=== PATIENT | male | born 1980 | race Caucasian/White ===

== ENCOUNTER → 2023-01-18 | Outpatient (CLI) | payer OTHER ==
[~2023-01-18] MED LIST: ISOVUE-370 76% 100ML VIAL As Ordered ONE
== END ==
LOC: M RAD 08:10
PROVIDERS: ATTEND Physician Assistant
DX: R91.1 Solitary pulmonary nodule (principal)

== ENCOUNTER → 2023-09-17 | Outpatient (CLI) | payer OTHER ==
[2023-09-17 14:38] LABS: BASO # 0.1 10^3/uL (0.0-0.2); BASO % 0.9 % (0.0-1.0); EOS # 0.5 10^3/uL (0.0-0.5); EOS % 6.4 % (0.0-3.0); HEMATOCRIT 44.6 % (42.0-52.0); HEMOGLOBIN 15.3 g/dl (13.5-17.5); LYMPH # 3.1 10^3/uL (1.5-5.0); MEAN CORPUSCULAR HEMOGLOBIN 30.8 pg (27.0-33.0); MEAN CORPUSCULAR HGB CONC 34.3 g/dl (32.0-36.5); MEAN CORPUSCULAR VOLUME 89.7 fl (80.0-96.0); MONO # 0.8 10^3/uL (0.0-0.8); MONO % 10.1 % (2.0-8.0); NEUTROPHILS # 3.4 10^3/uL (1.5-8.5); PLATELET COUNT, AUTOMATED 255 10^3/uL (150-450); RED BLOOD COUNT 4.97 10^6/uL (4.30-6.10); WHITE BLOOD COUNT 7.8 10^3/uL (4.0-10.0)
[2023-09-21 11:23] LABS: BLOOD UREA NITROGEN 19 MG/DL (8-27); CALCIUM LEVEL 9.7 MG/DL (8.7-10.3); CARBON DIOXIDE LEVEL 21 mmol/L (20-29); CHLORIDE LEVEL 99 mmol/L (96-106); CREATININE FOR GFR 1.09 MG/DL (0.57-1.00); GLOMERULAR FILTRATION RATE > 60.0 (>59); POTASSIUM SERUM 4.9 mmol/L (3.5-5.2); SODIUM LEVEL 138 mmol/L (134-144)
[2023-09-21 11:24] LABS: ALBUMIN 4.4 G/DL (3.9-4.9); ALKALINE PHOSPHATASE 76 IU/L (44-121); ALT/SGPT 30 IU/L (0-32); AST/SGOT 19 IU/L (0-40); BILIRUBIN,TOTAL 0.6 MG/DL (0.0-1.2); CHOLESTEROL LEVEL 181 MG/DL (100-199); CHOLESTEROL RISK RATIO 4.414 (<5); HDL CHOLESTEROL 41 MG/DL (>39); LDL CHOLESTEROL 114.6 MG/DL (<100); NON-HDL-C 140 MG/DL; TRIGLYCERIDES LEVEL 127 MG/DL (0-149)
[2023-09-21 11:25] LABS: GLUCOSE, FASTING 91 MG/DL (70-99)
== END ==
LOC: M WUC 09:59
PROVIDERS: ATTEND Family Medicine
DX: E78.5 Hyperlipidemia, unspecified (principal); I10 Essential (primary) hypertension